=== PATIENT | male | born 1990 | race Caucasian/White ===

== ENCOUNTER 2023-04-13 16:43 | Emergency (ER) | payer OTHER, SELFPAY ==
--- NOTE | ~2023-04-13 | XR_ITS ---
EXAMINATION: XR ANKLE, RIGHT CLINICAL INFORMATION: Fall. Pain. COMPARISON: None available. TECHNIQUE: AP, lateral, and mortise views of the right ankle. FINDINGS: Transverse mildly displaced fracture of the medial malleolus. Overlying soft tissue swelling. There is a minimally displaced fracture of the posterior malleolus. Ankle mortise remains congruent. XR/XR ankle RT 2V IMPRESSION: 1. Transverse mildly displaced fracture of the medial malleolus. 2. Minimally displaced fracture of the posterior malleolus.
--- NOTE | 2023-04-13 16:45 | ED_ITS ---
HPI - Extremity Injury (Lower) General Chief Complaint: Extremity Injury, Lower Stated Complaint: R ankle twisted Time Seen by Provider: 04/13/23 17:22 Source: patient Mode of arrival: ambulatory Limitations: no limitations History of Present Illness HPI Narrative: Patient is a 32-year-old male presenting to the emergency department with complaint of right ankle pain, swelling, and bruising. States that he was j umping on a trampoline and did a back flip, landed with his toes in contact with the trampoline 1st, then developed ankle pain and swelling. He denies any numbness or tingling. He did not take any [id number] pain medicines prior to arrival. Denies any other injuries or pain. MD complaint: ankle injury Onset (ago): hour(s) Injury: Right: ankle Type of Injury: unknown Place: street/outdoors Severity: moderate Relieving factors: cold therapy Exacerbating factors: weight bearing Context: jumping Associated symptoms: swelling Other symptoms: none Treatments prior to arrival: cold therapy Related Data Allergies Allergy/AdvReac Type Severity Reaction Status Date / Time No Known Allergies Allergy Verified 04/13/23 16:46 Review of Systems Review of Systems: As per HPI Yes all other systems are reviewed and are negative Constitutional: Constitutional: Reports as per HPI [facility] Social History Social History Advance Directives: No Advance Directives Information Provided: No Physical Exam Vital Signs: Vital Signs: Last Vital Signs Temp 97.3 F 04/13/23 16:47 Pulse 95 04/13/23 16:47 Resp 18 04/13/23 16:47 BP 126/63 04/13/23 16:47 Pulse Ox 98 04/13/23 16:47 O2 Del Method Room Air 04/13/23 16:47 BMI result Body Mass Index 28.3 Vital signs have been reviewed and appear to be correct. Blood pressure normal. Heart rate normal. Respiratory rate noted as 89, assumed to be erroneous, during assessment RR 18. Temperature normal. Oxygen saturation normal. Const: General: cooperative, healthy appearing and no acute distress Orientation/consciousness: oriented to person, oriented to place, oriented to time and patient oriented x3 Limitations: no limitations HEENT: Head: Yes normocephalic and Yes atraumatic Ears: external ears normal General nose exam: Normal external nose present Face and sinus: Yes face symmetric Mouth: oropharynx normal and moist mucous membranes Throat: Yes uvula midline Eyes: Pupils: Equal, round and reactive pupils present Neck: Neck: Yes normal visual inspection and Yes supple Resp: Effort & Inspection: normal respiratory effort and able to speak in complete sentences Auscultation: clear to auscultation bilaterally Cardio: Rate: regular rate Rhythm: regular rhythm Heart sounds: S1 normal heart sound present and S2 normal heart sound present GI: Palpation (GI): Soft to palpation and nontender Auscultation: normoactive bowel sounds : General: Yes no CVA tenderness Back/Spine/Pelvis: Back: no CVA tenderness Skin: General skin exam: elasticity normal and turgor normal Neuro: General: oriented to person, oriented to place, oriented to time, patient oriented x3, moves all extremities, no focal motor deficits and CN's II- XI intact bilaterally Cranial nerves: Yes Equal, round and reactive pupils present Cognition (Neuro): normal cognition Extrem: General: Yes full ROM, Yes normal exam except as noted, Yes no pedal edema and Yes no calf tenderness Right lower extremity: ankle Details: tenderness Location: of the medial malleolus, swelling Details: medially, normal ROM and ecchymosis medial and foot Details: toes with normal ROM and vascular exam Details: dorsalis pedis pulse present, posterior tibial pulse present and normal capillary refill Psych: Mental Status: mental status grossly normal Affect: normal affect Thought process: Normal thought process present Course Course Course Narrative: This is a rapid medical exam. Deferred additional HPI, ROS, PE to primary provider. 32 yo male with no known medical history here with complaints of right ankle pain after doing a back flip on a trampoline today. Will obtain x-rays. VSS Medications Administered Discontinued Medications Generic Name Dose Route Start Last Admin Trade Name Freq PRN Reason Stop Dose Admin Acetaminophen 975 mg 04/13/23 17:24 04/13/23 17:46 Acetaminophen 325 Mg Tablet PO 04/13/23 17:25 975 mg ONCE ONE Administration Ibuprofen 600 mg 04/13/23 17:24 04/13/23 17:46 Ibuprofen 600 Mg Tablet PO 04/13/23 17:25 600 mg ONCE ONE Administration Medical Decision Making Medical Decision Making MDM Narrative: Patient is a 32-year-old male presenting to the emergency department with complaint of right ankle pain, swelling, and bruising. On exam patient is awake, A+Ox3, VS WNL, afebrile, normal neurological exam without focal deficits, swelling, ecchymosis, and tenderness noted to medial malleolus, 2+ DP and PT pulses, full range of motion to all toes of right foot. Given reported symptoms and physical exam findings, initial differential includes right ankle strain, sprain, fracture. X-ray notable for transverse mildly displaced fracture of the medial malleolus as well as minimally displaced fracture of the posterior malleolus. My interpretation is in agreement with the radiologist's interpretation. Case discussed with patrick Pina, who recommends splint and outpatient follow-up. Patient provided with crutches and crutch training. Advised patient to keep the ankle elevated while at rest and apply ice for 10-15 minutes at a time several times daily. Tylenol and ibuprofen as needed for pain. Will refer to orthopedics for further evaluation and management. Return precautions discussed at bedside. Patient verbalized understanding of and agreement with plan. Differential Diagnosis Differential Diagnoses: The differential diagnosis associated with the presentation includes As per MDM. Consult Healthcare Provider Management of the patient was discussed with: Test Engine Mechanic (patrick Pina) Independent Interpretation I performed an independent interpretation of an: Plain X-Ray Interpretation: fractures of medial and posterior malleolus Radiology Impression Discussion of test interpretation with radiology: I have reviewed the radiologist's reading. Radiologist Impression: XR/XR ankle RT 2V IMPRESSION: 1.? Transverse mildly displaced fracture of the medial malleolus. 2.? Minimally displaced fracture of the posterior malleolus. ? External Record Review External record reviewed: Inpatient record, Office record and Outpatient record Discharge Plan Discharge Clinical Impression: Closed fracture of medial malleolus Qualifiers: Encounter type: initial encounter Fracture alignment: displaced Laterality: right Qualified Code(s): S82.51XA - Displaced fracture of medial malleolus of right tibia, initial encounter for closed fracture Closed fracture of posterior malleolus Qualifiers: Encounter type: initial encounter Laterality: right Qualified Code(s): S82.391A - Other fracture of lower end of right tibia, initial encounter for closed fracture Patient Disposition: Home, Self-Care Instructions: Ankle Fracture (DC), Crutch Instructions (ED) Additional Instructions: You have been evaluated in the emergency department today for ankle pain. Your x-ray showed evidence of a medial and posterior malleolus fracture. You will need further evaluation and management with orthopedics. Please call their office for a follow-up appointment as soon as possible. We have provided crutches for you to use while your ankle heals. DO NOT BEAR WEIGHT ON YOUR ANKLE. Please rest, ice, and elevate your ankle. We recommend you take 600mg ibuprofen every 6 hours or 650mg Tylenol every 6 hours as needed for pain. If needed you can alternate these medications as they take 1 medication every 3 hours. For instance at noon take ibuprofen, then at 3:00 p.m. take Tylenol, then at 6:00 p.m. take ibuprofen. Please schedule an appointment for follow-up with your primary care provider this week. Return to the emergency department if you experience worsening pain, numbness, tingling, change of color in your foot, or any other concerning symptoms. Referrals: [facility] – [place] [facility] [Provider Group] Stand Alone Forms: Work/School Release
[2023-04-13 16:47] VITALS: BP 126/63; PULSE 95; RESP 18; TEMP 36.3; O2SAT 98; BMI 28.3
[2023-04-13] MEDS: Ibuprofen 600 MG TABLET PO (17:46)
[2023-04-13] MEDS: Acetaminophen 325 MG TABLET 975 MG PO (17:46)
== END 2023-04-13 19:02 | disposition home or self-care (01) ==
PROVIDERS: Emergency Provider Internal Medicine
DX: S82.51XA Displaced fracture of medial malleolus of right tibia, initial encounter for closed fracture (principal); M79.604 Pain in right leg; X58.XXXA Exposure to other specified factors, initial encounter; Y93.9 Activity, unspecified; Y92.9 Unspecified place or not applicable; Y99.9 Unspecified external cause status
CPT/HCPCS: 29515; 73600; 99283